=== PATIENT | female | born 1990 | race Caucasian/White ===

== ENCOUNTER 2019-05-17 11:01 | Inpatient (IN) | payer SELFPAY ==
[~2019-05-17] VITALS: Ht 152.4 cm; Wt 61.4 kg
[2019-05-17] MEDS ORDERED: ALBUTEROL2.5 MG/3 M INH (11:07)
--- NOTE | 2019-05-17 11:27 | NUR ---
BLOOD TO LAB
[2019-05-17 11:39] LABS: BASOPHILS 0.1 % (0-2); EOSINOPHILS 5.4 % (0-7); HEMATOCRIT 39.3 % (36.0-48.0); HEMOGLOBIN 13.1 g/dL (12-16); IMMATURE GRANULOCYTES 0.2 % (0-5); LYMPHOCYTES 6.6 % (15-50); MCH 30.3 pg (26.0-34.0); MCHC 33.3 g/dL (31.0-37.0); MCV 90.8 fL (80.0-100.0); MEAN PLATELET VOLUME 10.5 fL (7.4-10.4); MONOCYTES 5.1 % (2-11); NEUTROPHILS 82.6 % (40-80); PLATELET COUNT 258 10x3/uL (130-400); RBC 4.33 10x6/uL (4.00-5.40); RDW 12.4 % (11.5-14.5); WBC 13.4 10x3/uL (4.8-10.8)
[2019-05-17 11:42] LABS: CALC OSMOLALITY 277 mosm/kg (275-300); CALCIUM 8.1 mg/dL (8.5-10.1); CARBON DIOXIDE 25.5 mmol/L (21.0-32.0); CHLORIDE - SERUM 104 mmol/L (98-107); CREATININE - SERUM 0.6 mg/dL (0.6-1.3); GLUCOSE 112 mg/dL (74-106); POTASSIUM - SERUM 3.9 mmol/L (3.5-5.1); SODIUM 139 mmol/L (136-145); UREA NITROGEN 9 mg/dL (7-18); eGFR NON AFRICAN AMERICAN > 90 mL/min (90-120)
[2019-05-17 11:47] LABS: ALBUMIN 3.6 g/dL (3.4-5.0); ALKALINE PHOSPHATASE 72 U/L (46-116); ALT (SGPT) 17 U/L (10-68); BILIRUBIN - TOTAL 0.29 mg/dL (0.2-1.3); PROTEIN - SERUM 7.3 g/dL (6.4-8.2)
[2019-05-17 14:26] VITALS: BP 132/62
--- NOTE | 2019-05-17 15:09 | NUR ---
ADMITTED TO ROOM 1212 FROM ER. ALERT AND ORIENTED. EXPIRATORY WHEEZYS NOTED BUL.
--- NOTE | 2019-05-17 15:10 | MORECARE ---
CASE MANAGEMENT DISCHARGE SUMMARY PATIENT: DESIRAE BARBOZA UNIT: [id number] ADM DATE: 05/17/19 AGE: 28 : 89 SEX: F ROOM/BED: D.1212 AUTHOR: ISRRAEL,DOC PHYSICIAN: REFERRING PHYSICIAN: MELECIO CHUNG MD DATE OF SERVICE: 05/17/19 Discharge Plan Patient Name: DESIRAE BARBOZA Facility: [facility]:[place] : 1990 Planned Disposition: Home Anticipated Discharge Date: 05/19/19 Discharge Date: Expected LOS: 2 Initial Reviewer: [email or web address] Initial Review Date: 05/17/2019 Generated: 05/17/19 4:10 pm DCP- Discharge Planning Updated by [email or web address]: Karissa Larson on 05/17/19 2:[address] DC PLAN: Return home with her boyfriend. ANTICIPATED DC NEEDS: Nebulizer RX for medication needed at dc. CM met with patient to complete initial dc planning assessment. CM educated patient on the CM role and verbal consent given by patient to complete assessment. CM verified patient's address, phone number, and emergency contact phone numbers. Patient lives at home with her boyfriend. At discharge patient plans to return home and feels this is a safe discharge. CM discussed availability of home health, rehab services, and medical equipment. Patient reports she is out of her nebulizer medication at home and will need a rx at time of dc. Transportation provider at discharge will be her boyfriend. CM will continue to follow and will assist as needed with dc plans/needs. Karissa Larson RN, [facility] [place] [facility] DCPIA - Discharge Planning Initial Assessment Updated by [email or web address]: Karissa Larson on 05/17/19 3:01 pm * Is the patient Alert and Oriented? Yes * PCP No PCP * Pharmacy [facility] the [facility] * Preadmission Environment Home with Family * ADLs Independent * Equipment Nebulizer * List name and contact numbers for known caregivers / representatives who currently or will assist patient after discharge: Germaine Mcmullen [facility] - [phone] * Verbal permission to speak to the caregivers and representatives has been obtained from the patient. Yes * Community resources currently utilized None * Additional services required to return to the preadmission environment? No * Can the patient safely return to the preadmission environment? Yes * Has this patient been hospitalized within the prior 30 days at any hospital? No Patient Name: DESIRAE BARBOZA Page [id number] at 1510 All edits/amendments must be made on the electronic document DICTATION DATE: 05/17/191509 MILL WASHER: ANIA 05/17/191509 RPT#: [id number] DC DATE: STATUS: ADM IN [facility] [address] [place] [address] END OF REPORT
[2019-05-17 15:13] VITALS: BP 133/70
--- NOTE | 2019-05-17 17:18 | NUR ---
NO CHANGE IN ASSESSMENT. RESTING WO C/O PAIN OR DISTRESS. PATIENT IS ON 5L O2 NC.
[2019-05-17 19:46] VITALS: Ht 152.4 cm; Wt 61.4 kg
[2019-05-17 19:54] VITALS: BP 135/69
--- NOTE | 2019-05-17 19:54 | NUR ---
PATIENT RESTING IN BED WITH NO S/S OF DISTRESS. PATIENT C/O 12/[address] CHUNG IN REGARDS TO PATIENT'S PAIN. DR. CHUNG STATED HE WILL ORDER THE PATIENT IBUPROFEN. VSS. BROUGHT PATIENT A DRINK PER HER REQUEST. PATIENT DENIES OTHER NEEDS AT THIS TIME. BED IN LOWEST POSITION AND CALL LIGHT WITHIN REACH. ENCOURAGED THE PATIENT TO CALL IF SHE HAS NEEDS. WILL CONTINUE TO MONITOR.
[2019-05-17 23:30] VITALS: BP 118/50
[2019-05-18 04:12] VITALS: BP 105/37
[2019-05-18 06:12] LABS: BASOPHILS 0.1 % (0-2); EOSINOPHILS 0 % (0-7); HEMATOCRIT 37.7 % (36.0-48.0); HEMOGLOBIN 12.3 g/dL (12-16); IMMATURE GRANULOCYTES 0.3 % (0-5); LYMPHOCYTES 4.3 % (15-50); MCH 30.1 pg (26.0-34.0); MCHC 32.6 g/dL (31.0-37.0); MCV 92.2 fL (80.0-100.0); MONOCYTES 1.4 % (2-11); NEUTROPHILS 93.9 % (40-80); PLATELET COUNT 288 10x3/uL (130-400); RBC 4.09 10x6/uL (4.00-5.40); RDW 12.4 % (11.5-14.5); WBC 16.7 10x3/uL (4.8-10.8)
[2019-05-18 06:30] LABS: CALC OSMOLALITY 280 mosm/kg (275-300); CALCIUM 8.8 mg/dL (8.5-10.1); CARBON DIOXIDE 21.7 mmol/L (21.0-32.0); CHLORIDE - SERUM 106 mmol/L (98-107); CREATININE - SERUM 0.8 mg/dL (0.6-1.3); GLUCOSE 232 mg/dL (74-106); POTASSIUM - SERUM 3.9 mmol/L (3.5-5.1); SODIUM 138 mmol/L (136-145); UREA NITROGEN 7 mg/dL (7-18); eGFR NON AFRICAN AMERICAN 90 mL/min (90-120)
--- NOTE | 2019-05-18 07:20 | NUR ---
ALERT AND ORIENTED. NO DISTRESS NOTED. CL IN REACH. O2 AT 5L NC.
[2019-05-18 08:02] VITALS: BP 114/48
[2019-05-18 11:13] VITALS: BP 114/47
--- NOTE | 2019-05-18 11:48 | NUR ---
RT GAVE PRN BREATHIING TX THIS AM. WHEEZING IMPROVED AFTER TX. NO C/O PAIN. RESTING AT THIS TIME. CL IN REACH.
[2019-05-18 16:08] VITALS: BP 115/63
--- NOTE | 2019-05-18 18:17 | NUR ---
NO CHANGE IN ASSESSMENT. BREATHING BETTER. LESS WHEEZING. VISITOR AT BS. CL IN REACH.
[2019-05-18 19:16] VITALS: BP 115/62
--- NOTE | 2019-05-18 20:00 | NUR ---
EVENING ROUNDS COMPLETED. VSS, AAOX4, NO S/S OF RESP DISTRESS. RR EVEN AND UNLABORED. FSBS 131. NO INSULIN GIVEN. PT ON 3L O2. PT DENIES ANY FURTHER NEEDS AT THIS TIME. WILL CTM.
[2019-05-19 03:55] VITALS: BP 111/53
[2019-05-19 06:12] LABS: HEMATOCRIT 39.3 % (36.0-48.0); HEMOGLOBIN 12.5 g/dL (12-16); MCH 29.7 pg (26.0-34.0); MCHC 31.8 g/dL (31.0-37.0); MCV 93.3 fL (80.0-100.0); MEAN PLATELET VOLUME 11.1 fL (7.4-10.4); PLATELET COUNT 327 10x3/uL (130-400); RBC 4.21 10x6/uL (4.00-5.40); RDW 12.5 % (11.5-14.5); WBC 20.6 10x3/uL (4.8-10.8)
[2019-05-19 06:30] LABS: CALCIUM 8.7 mg/dL (8.5-10.1); CARBON DIOXIDE 25.7 mmol/L (21.0-32.0); CHLORIDE - SERUM 107 mmol/L (98-107); CREATININE - SERUM 0.6 mg/dL (0.6-1.3); SODIUM 141 mmol/L (136-145); eGFR NON AFRICAN AMERICAN > 90 mL/min (90-120)
[2019-05-19 06:42] LABS: CALC OSMOLALITY 280 mosm/kg (275-300); GLUCOSE 125 mg/dL (74-106); POTASSIUM - SERUM 4.7 mmol/L (3.5-5.1); UREA NITROGEN 10 mg/dL (7-18)
[2019-05-19 06:45] LABS: IMMATURE GRANULOCYTES 0.3 % (0-5)
[2019-05-19 07:30] VITALS: BP 118/72
[2019-05-19 08:03] LABS: LYMPHOCYTES 6 % (15-50); NEUTROPHILS 93 % (40-80); PLATELET ESTIMATE NORMAL
--- NOTE | 2019-05-19 08:44 | NUR ---
PATIENT RECIEVED RESTING WITH NO NEEDS VOICED. RESPIRTATIONS REGULAR AND NONLABORED, CL IN REACH
[2019-05-19 16:17] VITALS: BP 120/68
[2019-05-19 19:41] VITALS: BP 125/72
[2019-05-20] VITALS: BP 123/62
[2019-05-20 04:00] VITALS: BP 131/76
[2019-05-20 06:50] LABS: BASOPHILS 0 % (0-2); EOSINOPHILS 0 % (0-7); HEMATOCRIT 38.2 % (36.0-48.0); HEMOGLOBIN 12.3 g/dL (12-16); IMMATURE GRANULOCYTES 0.2 % (0-5); LYMPHOCYTES 9.1 % (15-50); MCH 30.1 pg (26.0-34.0); MCHC 32.2 g/dL (31.0-37.0); MCV 93.6 fL (80.0-100.0); MEAN PLATELET VOLUME 11.3 fL (7.4-10.4); MONOCYTES 5.1 % (2-11); NEUTROPHILS 85.6 % (40-80); PLATELET COUNT 343 10x3/uL (130-400); RBC 4.08 10x6/uL (4.00-5.40); RDW 12.2 % (11.5-14.5)
[2019-05-20 06:51] LABS: CALC OSMOLALITY 280 mosm/kg (275-300); CALCIUM 8.5 mg/dL (8.5-10.1); CARBON DIOXIDE 28.3 mmol/L (21.0-32.0); CHLORIDE - SERUM 105 mmol/L (98-107); CREATININE - SERUM 0.6 mg/dL (0.6-1.3); GLUCOSE 136 mg/dL (74-106); POTASSIUM - SERUM 4.4 mmol/L (3.5-5.1); SODIUM 140 mmol/L (136-145); eGFR NON AFRICAN AMERICAN > 90 mL/min (90-120)
[2019-05-20 06:52] LABS: UREA NITROGEN 13 mg/dL (7-18); WBC 14.9 10x3/uL (4.8-10.8)
--- NOTE | 2019-05-20 07:52 | NUR ---
PT RESTNG. RR EVEN AND UNLABORED. DENES NEEDS OR SALDIVAR AT THS TME.BED AMADA LOWEST POSITION. CALL LIGHT MWITHIN REACH. WILL CONTINUE TO MONITOR.
--- NOTE | 2019-05-20 12:52 | NUR ---
PT RESTING. RR EVEN AND UNLABORED. DENIES NEEDS OR PAIN AT THIS TIME. STATED SHE DID NOT WANT INSULIN FOR 160 FSBS. CL WITHIN REACH. BED IN LOWEST POSITION. WILL CONTINUE TO MONITOR.
[2019-05-20 14:31] VITALS: BP 118/62
--- NOTE | 2019-05-20 17:39 | NUR ---
I have reviewed this patient and I concur with the Shift Assessment completed by the Licensed Practical Nurse today this shift.
[2019-05-20 19:12] VITALS: BP 125/67
--- NOTE | 2019-05-20 20:47 | NUR ---
EVENING ROUNDS COMPLETED. VSS,AAOX4, NO S/S OF RESP DISTRESS. RR EVEN AND UNLABORED. FSBS 204. INSULIN GIVEN PER PROTOCOL. PT'S PIV INFILTRATED. RESITE A NEW PIV ON RFA 22G X1 STICK. PT TOLERATE WELL. IV NS INFUSING @ 75MLS/HR. PT PT VOICED CONCERN ABOUT WANTING TO LEAVE TOMORROW FOR COURT APPOINTMENT. WILL RELAY HER MESSAGE TO PT'S PROVIDER. PT DENIES ANY FURTHER NEEDS AT THIS TIME. WILL CPOC. CL WITHIN REACH, BED IN LOW, SR UP X2.
[2019-05-20 21:34] LABS: HCG URINE NEGATIVE (NEGATIVE)
[2019-05-21 04:37] VITALS: BP 131/83
--- NOTE | 2019-05-21 07:20 | NUR ---
RECIEVE REPORT. RESTING IN BED WITH EYES CLOSED. RESPIRATIONS NONLABORED. OXYGEN AT 2L NC. SINUS RYTHM ON TELEMETRY. CONTINUE PLAN OF CARE AND SAFETY PRECAUTIONS.
[2019-05-21 07:35] LABS: BASOPHILS 0 % (0-2); EOSINOPHILS 0 % (0-7); HEMATOCRIT 39.9 % (36.0-48.0); HEMOGLOBIN 12.7 g/dL (12-16); IMMATURE GRANULOCYTES 0.4 % (0-5); LYMPHOCYTES 11.6 % (15-50); MCH 29.5 pg (26.0-34.0); MCHC 31.8 g/dL (31.0-37.0); MCV 92.6 fL (80.0-100.0); MEAN PLATELET VOLUME 10.7 fL (7.4-10.4); MONOCYTES 7.4 % (2-11); NEUTROPHILS 80.6 % (40-80); PLATELET COUNT 307 10x3/uL (130-400); RBC 4.31 10x6/uL (4.00-5.40); WBC 13.7 10x3/uL (4.8-10.8)
[2019-05-21 07:36] LABS: CALC OSMOLALITY 280 mosm/kg (275-300); CALCIUM 8.5 mg/dL (8.5-10.1); CARBON DIOXIDE 27.7 mmol/L (21.0-32.0); CHLORIDE - SERUM 104 mmol/L (98-107); GLUCOSE 122 mg/dL (74-106); POTASSIUM - SERUM 4.1 mmol/L (3.5-5.1); SODIUM 140 mmol/L (136-145); UREA NITROGEN 15 mg/dL (7-18); eGFR NON AFRICAN AMERICAN 79 mL/min (90-120)
[2019-05-21 07:37] LABS: CREATININE - SERUM 0.9 mg/dL (0.6-1.3)
[2019-05-21 08:33] VITALS: BP 125/57
[2019-05-21 11:24] VITALS: BP 125/69
[2019-05-21] MEDS ORDERED: ALBUTEROL2.5 MG/3 M INH (13:10)
[2019-05-21] MEDS ORDERED: SINGULAIR10 MG PO (13:11)
[2019-05-21] MEDS ORDERED: MUCINEX600 MG PO (13:11)
[2019-05-21] MEDS ORDERED: ALBUTEROL SULF8.5 GM INH (13:12)
[2019-05-21] MEDS ORDERED: PREDNISONE20 MG PO (13:13)
--- NOTE | 2019-05-21 14:23 | NUR ---
PATIENT TO REFUSE FLU SHOT. NO PHARMACY NAME UPON ADMIT SO DISCHARGE MEDICATIONS NEEDED TO BE CALLED IN. PER CM NOTE, PATIENT USES [facility]. CALLED ALL 5 MEDICATIONS IN.
--- NOTE | 2019-05-21 16:37 | NUR ---
ALERT AND ORIENTED X4. SITTING UP IN BED. OXYGEN REMOVED. O2 SAT REMAINS 96% WITH ACTIVITY WITHOUT OXYGEN. DC RT WRIST IV TIP INTACT. DISCHARGE INSTRUCTIONS GIVEN VERBALLY AND WRITTEN. DISCHARGE PAPERS SIGNED ON CHART. ESCORT TO RIDE VIA AMBULATORY PER PATIENT REQUEST. REMAINS FREE FROM INJURY.
--- NOTE | 2019-05-24 08:13 | MORECARE ---
CASE MANAGEMENT DISCHARGE SUMMARY PATIENT: DESIRAE BARBOZA UNIT: [id number] ADM DATE: 05/17/19 AGE: 28 : 90 SEX: F ROOM/BED: D.1212 AUTHOR: ISRRAEL,DOC PHYSICIAN: REFERRING PHYSICIAN: MELECIO CHUNG MD DATE OF SERVICE: 05/24/19 Discharge Plan Patient Name: DESIRAE BARBOZA Facility: [facility]:[place] : 1990 Planned Disposition: Home Anticipated Discharge Date: 05/21/19 Discharge Date: 05/21/2019 Expected LOS: 4 Initial Reviewer: [email or web address] Initial Review Date: 05/17/2019 Generated: 05/24/19 9:13 am DCP- Discharge Planning Updated by [email or web address]: Karissa Larson on 05/17/19 2:[address] DC PLAN: Return home with her boyfriend. ANTICIPATED DC NEEDS: Nebulizer RX for medication needed at dc. CM met with patient to complete initial dc planning assessment. CM educated patient on the CM role and verbal consent given by patient to complete assessment. CM verified patient's address, phone number, and emergency contact phone numbers. Patient lives at home with her boyfriend. At discharge patient plans to return home and feels this is a safe discharge. CM discussed availability of home health, rehab services, and medical equipment. Patient reports she is out of her nebulizer medication at home and will need a rx at time of dc. Transportation provider at discharge will be her boyfriend. CM will continue to follow and will assist as needed with dc plans/needs. Karissa Larson RN, [facility] DCPIA - Discharge Planning Initial Assessment Updated by [email or web address]: Karissa Larson on 05/17/19 3:01 pm * Is the patient Alert and Oriented? Yes * PCP No PCP * Pharmacy [facility] the [facility] * Preadmission Environment Home with Family * ADLs Independent * Equipment Nebulizer * List name and contact numbers for known caregivers / representatives who currently or will assist patient after discharge: Germaine Mcmullen [facility] - [phone] * Verbal permission to speak to the caregivers and representatives has been obtained from the patient. Yes * Community resources currently utilized None * Additional services required to return to the preadmission environment? No * Can the patient safely return to the preadmission environment? Yes * Has this patient been hospitalized within the prior 30 days at any hospital? No Last DP export: 05/17/19 2:10 Patient Name: DESIRAE BARBOZA Page [id number] at 0813 All edits/amendments must be made on the electronic document DICTATION DATE: 05/24/19812 CORE LAYING MACHINE OPERATOR: ANIA 05/24/19812 RPT#: [id number] DC DATE:05/21/19 STATUS: DIS IN [facility] [address] [place] [address] END OF REPORT
== END 2019-05-21 16:52 | disposition home or self-care (01) | DRG 203 ==
LOC: D.ER 11:01 → D.M3 13:49
PROVIDERS: Family Medicine; ADMIT Family Medicine; ATTEND Family Medicine
DX: J45.901 Unspecified asthma with (acute) exacerbation (principal); Z72.0 Tobacco use